=== PATIENT | female | born 1990 | race Caucasian/White ===

== ENCOUNTER 2019-02-10 09:33 | Emergency (ER) | payer SELFPAY ==
[2019-02-10 09:54] VITALS: BP 140/86
[2019-02-10] MEDS ORDERED: IPRATROPIUM/ALBUTEROL 0.5-2.5 MG/3 ML AMPUL NEB ONE (10:30)
--- NOTE | 2019-02-10 10:35 | ER Document Report ---
HPI - HPI Time Seen by Provider: 02/10/19 09:45 Pain Level: 3 Notes: 28-year-old female presents the ED for complaints of right ear pain, right outer ear pain, dry cough and sore throat, patient states that she was seen a week and a half ago, was given a prescription for azithromycin to take if he gets worse, patient did start azithromycin course yesterday with 2 pills. Patient states she has been using rubbing alcohol on the outer part of her right ear notices be come more irritated after that. patient reports she also has a rash, at her last visit was told that she had tinea corporis, she has been applying antifungal spray, states the rash has been getting slightly worse in conjunction with her other symptoms. Patient does smoke half a pack to pack a day for the last 10 to 12 years. No history of asthma. Patient is taking Mucinex without relief. denies fevers, chills, chest pain,palpitations, shortness of breath, dyspnea, nausea, vomiting, diarrhea, abdominal pain, hematuria,blurred vision, double vision, loss of vision, speech changes, LH, dizziness, syncope, headaches, wheezing,neck pain, weakness, bowel or bladder dysfunction, saddle anesthesia, numbness or tingling in bilateral upper or lower extremities equally, muscle paralysis, weakness in bilateral upper or lower extremities equally - CONSTITUTIONAL Constitutional: DENIES: Fever, Chills - EENT EENT: REPORTS: Sore Throat - right side, Ear Pain. DENIES: Eye problems - NEURO Neurology: DENIES: Headache, Weakness, Vision blurred, Dizzinesss / Vertigo - CARDIOVASCULAR Cardiovascular: DENIES: Chest pain - RESPIRATORY Respiratory: DENIES: Trouble Breathing, Coughing - GASTROINTESTINAL Gastrointestinal: DENIES: Abdominal Pain, Black / Bloody Stools - URINARY Urinary: DENIES: Dysuria, Urgency, Frequency - REPRODUCTIVE Reproductive: DENIES: : - MUSCULOSKELETAL Musculoskeletal: DENIES: Extremity pain Past Medical History - General Information source: Patient - Social History Smoking Status: Current Every Day Smoker Family History: Reviewed & Not Pertinent Patient has suicidal ideation: No Patient has homicidal ideation: No Renal/ Medical History: Denies: Hx Peritoneal Dialysis Psychiatric Medical History: Reports: Hx Depression Vertical Provider Document - CONSTITUTIONAL Agree With Documented VS: Yes Notes: PHYSICAL EXAMINATION: GENERAL: Well-appearing, well-nourished and in no acute distress. HEAD: Atraumatic, normocephalic. EYES: Pupils equal round and reactive to light, extraocular movements intact, conjunctiva are normal. ENT: Right external canal with erythema and inflammation, no discharge. TM intact with bilateral serous effusion, no erythema. No mastoid tenderness bilaterally. no trismus. bilaterally nares boggy bilaterally, oropharynx with erythema without exudates. Moist mucous membranes. NECK: Normal range of motion, supple without lymphadenopathy LUNGS: Diminished breath sounds in bilateral upper lobes, after breathing treatment breath sounds clear to auscultation bilaterally and equal. No wheezes rales or rhonchi. HEART: Regular rate and rhythm without murmurs ABDOMEN: Soft, nontender, nondistended abdomen. No guarding, no rebound. No masses appreciated. Female : deferred Musculoskeletal: Normal range of motion, no pitting or edema. No cyanosis. NEUROLOGICAL: Cranial nerves grossly intact. Normal speech, normal gait. Normal sensory, motor exams PSYCH: Normal mood, normal affect. SKIN: Warm, Dry, normal turgor, no rashes or lesions noted. - INFECTION CONTROL TRAVEL OUTSIDE OF THE [place] IN LAST 30 DAYS: No Course - Re-evaluation Re-evalutation: 02/10/19 10:34 Nursing notes reviewed, vital signs stable, afebrile. Patient given breathing treatment due to pulse ox only being 96%. Rapid strep negative, but pt taking zpack. Continue taking azithromycin course, start prednisone 20 mg twice daily for 5 days, as well as using antibiotic Arctic drops as directed, apply heat 20 minutes on 20 minutes off several times a day to right ear, take [id number] ibuprofen and Tylenol as needed for pain, continue taking Mucinex, consider taking Sudafed. After performing a Medical Screening Examination, I estimate there is LOW risk for malignant otitis media, mastoiditis, MENINGITIS, or ACUTE CORONARY SYNDROME, thus I consider the discharge disposition reasonable. I have reevaluated this patient multiple times and no significant life threatening changes are noted. The patient and I have discussed the diagnosis and risks, and we agree with discharging home to follow-up on an outpatient basis with the understanding that symptoms and presentations can change. We also discussed returning to the Emergency Department immediately if new or worsening symptoms occur. We have discussed the symptoms which are most concerning (e.g., high fevers, confusion) that necessitate immediate return. 02/10/19 11:16 - Vital Signs Vital signs: Temp Pulse Resp BP Pulse Ox 98.4 F 96 16 140/86 H 95 02/10/19 09:52 02/10/19 09:52 02/10/19 09:52 02/10/19 09:52 02/10/19 09:52 Discharge - Discharge Clinical Impression: Tinea corporis, Cough Otitis externa Qualifiers: Otitis externa type: swimmer's ear Chronicity: acute Laterality: right Qualified Code(s): H60.331 - Swimmer's ear, right ear Disposition: HOME, SELF-CARE Instructions: Acetaminophen, Use of Ear Drops ([facility]), Otitis Externa ([facility]) Additional Instructions: Continue taking azithromycin, rescue inhaler as already prescribed to you. Your rapid strep is negative, however you have already started azithromycin which does cover for strep throat. take prednisone and use optic eardrops as directed, apply warm compress your 20 minutes on 20 minutes off several times a day, take [id number] ibuprofen and Tylenol as needed for pain, referral given for ear nose and throat, follow-up if symptoms are getting worse, to follow-up with primary care provider within the next 24 to 48 hours. If symptoms become worse such is worsening pain, fever, vomiting, productive cough, chest pain or shortness of breath, severe headache, neck pain, return to the emergency room immediately. Prescriptions: Ofloxacin [Floxin] 10 drop OT TID #1 bottle Prednisone [Deltasone 20 mg Tablet] 3 tab PO DAILY 5 Days #15 tablet Forms: Return to Work Referrals: RANI REZA MD [COMMUNITY BASED STAFF] - Follow up as needed NIDA CORBETT DO [ASSOCIATE] - Follow up as needed
== END 2019-02-10 11:22 | disposition home or self-care (01) ==
LOC: ER 09:33
DX: H60.331 Swimmer's ear, right ear (principal); J02.9 Acute pharyngitis, unspecified; B35.4 Tinea corporis; H92.01 Otalgia, right ear; R05 Cough; F17.200 Nicotine dependence, unspecified, uncomplicated
CPT/HCPCS: 94640; 99283; 87070; 87880; J7620